=== PATIENT | male | born 1930 | race Caucasian/White ===

== ENCOUNTER → 2016-12-05 | Outpatient (CLI) | payer MEDICARE, MEDICAID | END | disposition home or self-care (01) | LOC: GMAB 17:39 | PROVIDERS: ATTEND Family Medicine | DX: D50.8 Other iron deficiency anemias (principal); E03.9 Hypothyroidism, unspecified; Z12.5 Encounter for screening for malignant neoplasm of prostate; I10 Essential (primary) hypertension | CPT/HCPCS: 82728; 83540; 83550; 84439; 84443; 84481; G0103 ==

== ENCOUNTER → 2018-02-08 | Outpatient (CLI) | payer MEDICARE, MEDICAID | LOC: GMAE 15:42 | PROVIDERS: ATTEND Family Medicine | DX: E03.9 Hypothyroidism, unspecified (principal) ==

== ENCOUNTER → 2018-06-11 | Outpatient (CLI) | payer MEDICARE, MEDICAID | LOC: GMAE 17:50 | PROVIDERS: ATTEND Family Medicine | DX: E03.9 Hypothyroidism, unspecified (principal) ==

== ENCOUNTER → 2018-09-17 | Day surgery (SDC) | payer MEDICARE, MEDICAID ==
[~2018-09-17] MED LIST: MIDAZOLAM INJ 2 MG/2 ML VIAL ONE
== END ==
LOC: AMB 05:48
PROVIDERS: ATTEND Ophthalmology
DX: H25.11 Age-related nuclear cataract, right eye (principal); Z53.9 Procedure and treatment not carried out, unspecified reason

== ENCOUNTER 2018-10-01 05:46 | Day surgery (SDC) | payer MEDICARE, MEDICAID ==
[2018-10-01] MEDS ORDERED: PROPARACAINE 0.5% OPHTH SOL 15 ML BTTL ONE (08:44)
[2018-10-01] MEDS ORDERED: TROP 1%/CYCLOPEN 1%/PHENYL 2% DROPS ONE (08:44)
[2018-10-01] MEDS ORDERED: MOXIFLOXACIN HCL (OPHTH) 1 DROP DROPS ONE (08:44)
[2018-10-01] MEDS ORDERED: MIDAZOLAM INJ 2 MG/2 ML VIAL ONE (10:38)
[2018-10-01] MEDS ORDERED: PROPARACAINE 0.5% OPHTH SOL 15 ML BTTL RIGHT_EYE ONE (10:38)
[2018-10-01] MEDS ORDERED: MOXIFLOXACIN HCL (OPHTH) 1 DROP DROPS RIGHT_EYE ONE ×2 (10:46→10:58)
[2018-10-01] MEDS ORDERED: DEXAMETHASONE 0.1% OPHTH SOL 1 DROP RIGHT_EYE ONE ×2 (10:46→10:58)
[2018-10-01] MEDS ORDERED: LIDOCAINE 1% MPF 2 ML VIAL INJ ONE (10:46)
[2018-10-01] MEDS ORDERED: BRIMONIDINE 0.2% OPHTH DROPS RIGHT_EYE ONE ×2 (10:47→10:58)
[2018-10-01] MEDS ORDERED: TOBRAMYCIN SULF 0.3 % OPHT SOL 1 DROP RIGHT_EYE ONE ×2 (10:47→10:58)
== END 2018-10-01 11:45 | disposition home or self-care (01) ==
LOC: AMB 05:46
PROVIDERS: ATTEND Ophthalmology
DX: H25.11 Age-related nuclear cataract, right eye (principal); I10 Essential (primary) hypertension; Z79.899 Other long term (current) drug therapy
CPT/HCPCS: 00142; 66984; J2250

== ENCOUNTER 2018-10-15 05:33 | Day surgery (SDC) | payer MEDICARE, MEDICAID ==
[2018-10-15] MEDS ORDERED: MIDAZOLAM INJ 2 MG/2 ML VIAL ONE (07:10)
[2018-10-15] MEDS: PROPARACAINE 0.5% OPHTH SOL 15 ML BTTL LEFT_EYE ONE (10:04)
[2018-10-15] MEDS: MOXIFLOXACIN HCL (OPHTH) 1 DROP DROPS LEFT_EYE ONE ×2 (10:11→10:23)
[2018-10-15] MEDS: LIDOCAINE 1% MPF 2 ML VIAL INJ ONE (10:11)
[2018-10-15] MEDS: TOBRAMYCIN SULF 0.3 % OPHT SOL 1 DROP LEFT_EYE ONE ×2 (10:12→10:23)
[2018-10-15] MEDS: BRIMONIDINE 0.2% OPHTH DROPS LEFT_EYE ONE ×2 (10:12→10:23)
[2018-10-15] MEDS: DEXAMETHASONE 0.1% OPHTH SOL 1 DROP LEFT_EYE ONE ×2 (10:12→10:23)
[2018-10-15] MEDS ORDERED: TROP 1%/CYCLOPEN 1%/PHENYL 2% DROPS ONE (11:31)
[2018-10-15] MEDS ORDERED: PROPARACAINE 0.5% OPHTH SOL 15 ML BTTL ONE (11:31)
== END 2018-10-15 11:15 | disposition home or self-care (01) ==
LOC: AMB 05:33
PROVIDERS: ATTEND Ophthalmology
DX: H25.12 Age-related nuclear cataract, left eye (principal)
CPT/HCPCS: 00142; 66984; J2250

== ENCOUNTER → 2019-06-17 | Outpatient (CLI) | payer MEDICARE, MEDICAID | LOC: GMAE 15:30 | PROVIDERS: ATTEND Family Medicine | DX: E03.9 Hypothyroidism, unspecified (principal); I10 Essential (primary) hypertension; E78.5 Hyperlipidemia, unspecified ==

== ENCOUNTER → 2020-01-01 | Outpatient (CLI) | payer MEDICARE, MEDICAID | LOC: GMAE 16:48 | PROVIDERS: ATTEND Family Medicine | DX: E03.9 Hypothyroidism, unspecified (principal) ==

== ENCOUNTER → 2020-01-02 | Outpatient (CLI) | payer MEDICARE, MEDICAID | LOC: GMAE 17:01 | PROVIDERS: ATTEND Family Medicine | DX: M79.10 Myalgia, unspecified site (principal) ==

== ENCOUNTER → 2020-01-21 | Outpatient (CLI) | payer MEDICARE, MEDICAID ==
--- NOTE | 2020-01-22 07:58 | MRI ---
Study: MRI of the Left Ankle. Indication: ATHEROSCLEROSIS OF [place] ARTERY Technique: Multiplanar, multi sequence MRI of the left ankle was obtained without intravenous contrast. Comparison: None. Findings: Extensive patchy marrow edema noted throughout all visualized bones of the ankle including the distal tibia/fibula, talus, calcaneus, cuneiforms, and proximal aspects of the metatarsals. Associated tibiotalar and subtalar joint effusions present. No acute fracture identified. Scattered subcutaneous edema about the ankle. Subtle skin ulceration suspected anterolaterally with bandaging present superficial to the distal tibiofibular joint. No drainable subcutaneous fluid collection. No acute fracture. No acute ankle ligament rupture. Ankle mortise alignment normal. Talar dome intact. No talar coalition. No rupture of the plantar fascia Achilles tendon. Tiny accessory navicular bone. No tear of the medial tendons, peroneal tendons, or anterior tendons. Impression: Extensive patchy marrow edema throughout all bones of the ankle. Given the extensive nature of this finding, stress-related marrow changes should be considered. Skin ulceration is suspected anterolateral, distal tibiofibular joint. Given this finding, osteomyelitis is a consideration, particularly at the distal tibia and fibula but would be unusual given the widespread signal abnormalities. Correlation with ESR and CRP recommended. Complex regional pain syndrome is also a consideration. No acute fracture. Additional findings as above. Electronically signed by: Gt Hartmann MD 01/22/2020 7:56 AM SLOT FLOOR SUPERVISOR
--- NOTE | 2020-01-22 08:00 | MRI ---
Study: MRI of the Right Ankle. Indication: ATHEROSCLEROSIS OF [place] ARTERY Technique: Multiplanar, multi sequence MRI of the right ankle was obtained without intravenous contrast. Comparison: None. Findings: Extensive patchy marrow edema noted throughout all visualized bones of the ankle including the distal tibia/fibula, talus, calcaneus, cuneiforms, and proximal aspects of the metatarsals. Associated tibiotalar and subtalar joint effusions present. No acute fracture identified. Scattered subcutaneous edema about the ankle. Subtle skin ulceration suspected medially with bandaging present superficial to the medial malleolus. No drainable subcutaneous fluid collection. No acute fracture. Remote appearing effectively full-thickness anterior talofibular ligament tear. No acute ankle ligament rupture. Ankle mortise alignment normal. Talar dome intact. No talar coalition. No rupture of the plantar fascia Achilles tendon. Tiny accessory navicular bone. No tear of the medial tendons, peroneal tendons, or anterior tendons. Impression: Extensive patchy marrow edema throughout all bones of the ankle. Given the extensive nature of this finding, stress-related marrow changes should be considered. Skin ulceration is suspected medial to the medial malleolus. Given this finding, osteomyelitis is a consideration, particularly at the medial malleolus but would be unusual given the widespread signal abnormalities. Correlation with ESR and CRP recommended. Complex regional pain syndrome is also a consideration. No acute fracture. Additional findings as above. Electronically signed by: Gt Hartmann MD 01/22/2020 7:59 AM PROCESS ANALYST
== END ==
LOC: MRI 14:01
PROVIDERS: ATTEND Family Medicine
DX: I70.243 Atherosclerosis of native arteries of left leg with ulceration of ankle (principal); I70.233 Atherosclerosis of native arteries of right leg with ulceration of ankle; R60.0 Localized edema; L98.9 Disorder of the skin and subcutaneous tissue, unspecified

== ENCOUNTER → 2020-02-12 | Outpatient (CLI) | payer MEDICARE, MEDICAID ==
--- NOTE | 2020-02-13 14:20 | US ---
EXAM DESCRIPTION: Ankle Brachial Index (accession [id number]), Extremity,Lower Haider Arteries (accession [id number]): Ultrasound. CLINICAL HISTORY: 89 years Male ATHEROSCLEROSIS COMPARISON: None. TECHNIQUE: Doppler evaluation of the bilateral lower extremity arterial flow waveforms and velocities. Measurement of systolic blood pressures in the bilateral brachial arteries and the bilateral distal lower extremities.. FINDINGS: Arterial waveforms in the right lower extremity: Multiphasic from the right common femoral artery through the right popliteal artery. Monophasic distal to the right popliteal artery.. Arterial waveforms in the left lower extremity: Multiphasic from the left common femoral artery through the distal left femoral artery. Monophasic from the left popliteal artery through the lateral cells pedis artery. Comments: Elevated velocity in the right posterior tibial artery could be due to stenosis in the peroneal DRUG DISCOVERY INFORMATICS SPECIALIST trunk or the PDA. Significantly low velocity in the left distal peroneal artery can indicate almost complete stenosis. Probable narrowing or stenosis distal left femoral artery with elevated velocity. CHULA (BP units mm Hg.) RIGHT Brachial SBP 132 (129). PT SBP 159. CHULA 1.2. DP SBP 154. CHULA 1.16. LEFT Brachial SBP 132. PT SBP 155. CHULA 1.17. DP SBP 155. CHULA 1.17. IMPRESSION: 1. CHULA measurements show no atherosclerotic occlusive disease. 2. Bilateral significant atherosclerotic occlusive disease as indicated by arterial waveforms in the lower extremities above the calves. More severe on the left. Discordance with CHULA measurements indicates the need for bilateral CTA lower extremities. Electronically signed by: Jose A Albarado MD 02/13/2020 2:19 PM DATA SYSTEMS MANAGER
--- NOTE | 2020-02-13 14:20 | US ---
EXAM DESCRIPTION: Ankle Brachial Index (accession [id number]), Extremity,Lower Haider Arteries (accession [id number]): Ultrasound. CLINICAL HISTORY: 89 years Male ATHEROSCLEROSIS COMPARISON: None. TECHNIQUE: Doppler evaluation of the bilateral lower extremity arterial flow waveforms and velocities. Measurement of systolic blood pressures in the bilateral brachial arteries and the bilateral distal lower extremities.. FINDINGS: Arterial waveforms in the right lower extremity: Multiphasic from the right common femoral artery through the right popliteal artery. Monophasic distal to the right popliteal artery.. Arterial waveforms in the left lower extremity: Multiphasic from the left common femoral artery through the distal left femoral artery. Monophasic from the left popliteal artery through the lateral cells pedis artery. Comments: Elevated velocity in the right posterior tibial artery could be due to stenosis in the peroneal [employer]IEF trunk or the PDA. Significantly low velocity in the left distal peroneal artery can indicate almost complete stenosis. Probable narrowing or stenosis distal left femoral artery with elevated velocity. CHULA (BP units mm Hg.) RIGHT Brachial SBP 132 (129). PT SBP 159. CHULA 1.2. DP SBP 154. CHULA 1.16. LEFT Brachial SBP 132. PT SBP 155. CHULA 1.17. DP SBP 155. CHULA 1.17. IMPRESSION: 1. CHULA measurements show no atherosclerotic occlusive disease. 2. Bilateral significant atherosclerotic occlusive disease as indicated by arterial waveforms in the lower extremities above the calves. More severe on the left. Discordance with CHULA measurements indicates the need for bilateral CTA lower extremities. Electronically signed by: Jose A Albarado MD 02/13/2020 2:19 PM HARDWOOD FLOOR INSTALLATION HELPER
== END ==
LOC: US 15:08
PROVIDERS: ATTEND Family Medicine
DX: I70.243 Atherosclerosis of native arteries of left leg with ulceration of ankle (principal); I70.233 Atherosclerosis of native arteries of right leg with ulceration of ankle